=== PATIENT | male | born 1980 | race Caucasian/White ===

== ENCOUNTER → 2020-09-08 08:04 | Outpatient (CLI) | payer OTHER, SELFPAY ==
[2020-09-08 10:22] LABS: Hematocrit 43.7 % (40-54); Hemoglobin 14.8 g/dL (13.0-16.5); Mean Corp Hgb Conc 33.9 g/dL (32-36); Mean Corpuscular Hgb 30.8 pg (27.0-32.0); Platelet Count 238 K/mm3 (150-450); RBC Distribution Width CV 11.7 % (11.6-14.6); White Blood Count 4.7 K/mm3 (4.4-11.0)
[2020-09-08 10:45] LABS: Anion Gap 5 (5-15); BUN 14 mg/dL (7-18); BUN/Creat Ratio 15.2 RATIO (10-20); Calcium,Total 9.1 mg/dL (8.5-10.1); Chloride 106 mmol/L (98-107); Cholesterol 176 mg/dL (200); Creatinine, Serum 0.92 mg/dL (0.70-1.30); EST Glomerular Filtration Rate 96 mL/min (>60); Est Glom Filt Rate - Afr Amer 116 mL/min (>60); Glucose 88 mg/dL (74-106); High Density Lipoprotein 53 mg/dL; Potassium 3.9 mmol/L (3.5-5.1); Sodium Level 139 mmol/L (136-145); Triglycerides 59 mg/dL; Very Low Density Lipoprotein 12 mg/dL (5-40)
== END ==
PROVIDERS: PCP Family Medicine; Referring Provider Family Medicine; Visit Provider Family Medicine
DX: Z00.00 Encounter for general adult medical examination without abnormal findings (principal); Z13.1 Encounter for screening for diabetes mellitus; Z13.220 Encounter for screening for lipoid disorders
CPT/HCPCS: 36415; 80048; 80061; 85027

== ENCOUNTER → 2020-09-16 11:57 | Outpatient (CLI) | payer OTHER, SELFPAY ==
[2016-09-01 09:52] VITALS: BMI 31.6
--- NOTE | 2020-09-16 12:04 | RAD_ITS ---
STUDY: X-RAY - ABDOMEN/PELVIS REASON FOR EXAM: Male, 40 years old. ABDOMEN PAIN ON THE LEFT FOR ABOUT 2 WEEKS, NOW IT IS STARTING TO RADIATE POSTERIORLY. NO N,V,D OR C PER PATIENT. HX OF APPENDECTOMY ABOUT 4 YRS AGO. TECHNIQUE: 4 AP views COMPARISON: None. FINDINGS: Normal visualized lung bases. There is an unremarkable bowel gas pattern. There is no demonstrated free abdominal air. The visualized liver, spleen and kidneys are grossly normal in size and morphology. Normal soft tissue structures. Normal visualized osseous structures. RAD/Abd Inc Decub and/or Erect IMPRESSION: Normal x-ray examination of the abdomen and pelvis. Electronically Signed: Deejay Nugent MD at 16:48 EST , Service support ,
== END ==
PROVIDERS: PCP Family Medicine; Referring Provider Family Medicine; Visit Provider Family Medicine
DX: R10.9 Unspecified abdominal pain (principal)
CPT/HCPCS: 74019

== ENCOUNTER → 2020-10-20 06:58 | Outpatient (CLI) | payer OTHER, SELFPAY ==
--- NOTE | 2020-10-20 07:03 | CT_ITS ---
STUDY: CT ABDOMEN AND PELVIS WITH CONTRAST REASON FOR EXAM: Male, 40 years old. Abdomen pain AND BILATERAL FLANK PAIN X 2 MONTHS. PRIOR APPENDECTOMY RADIATION DOSAGE (If Supplied By Facility): CTDIvol = ( 14.80 ) mGy, DLP = ( 866.34 ) mGycm TECHNIQUE: Transaxial images were obtained from the dome of the diaphragm to the symphysis pubis with oral contrast. Oral and amp; IV Readi-CAT and amp; 100mL Isovue-300 was administered. Sagittal and coronal images were reconstructed. Individualized dose optimization techniques were used for this CT. COMPARISON: Comparison is made with prior study dated 08/31/2016. FINDINGS: Calcified right hilar lymph nodes. The visualized portions of the heart are within normal limits. There is decreased attenuation of the liver consistent with steatosis. Normal gallbladder and extrahepatic biliary system. Normal spleen. Normal pancreas. Normal bilateral adrenal glands. There is a 1.6 cm cyst in the anterior lateral aspect of the right kidney. Normal left kidney. There is a small hiatal hernia. Normal small intestine. There are scattered colonic diverticula consistent with diverticulosis. Mild degree of the mural thickening of the sigmoid colon. Early diverticulitis should be ruled out. There are surgical clips in the region of the appendix consistent with a prior appendectomy. Normal abdominal aorta. Normal inferior vena cava. There is borderline retroperitoneal lymphadenopathy with enlarged nodes no greater than 10mm in the short axis diameter. Normal urinary bladder. There is a small umbilical hernia containing fat. Minimal anterior listhesis of L5 on S1 with spondylolysis of the pars interarticularis of the L5 vertebrae. CT/Abdomen/Pelvis WITH Contrast IMPRESSION: Status post appendectomy. Scattered sigmoid diverticula. Minimal thickening of the wall of the sigmoid colon. Mild sigmoid diverticulitis should be ruled out. Electronically Signed: Ion Mueller, at 8:42 EST , Service support ,
== END ==
PROVIDERS: PCP Family Medicine; Referring Provider Family Medicine; Visit Provider Family Medicine
DX: R10.9 Unspecified abdominal pain (principal)
CPT/HCPCS: 74177; Q9967

== ENCOUNTER 2021-04-04 21:12 | Emergency (ER) | payer OTHER, SELFPAY ==
[2021-04-04 21:13] VITALS: BP 114/73; PULSE 89; RESP 15; TEMP 37.2; O2SAT 96; BMI 26.6
--- NOTE | 2021-04-04 21:30 | EDS_ITS ---
HPI History of Present Illness Chief Complaint: Abd Pain Informant: patient Narrative Narrative: 40-year-old male states he has been experiencing some left flank pain over the past several months. On Sunday he began to have left lower quadrant pain. Then this evening he notes that he developed a fever of up to 103. He notes generalized myalgias and headache. He had a Covid test that was negative. Because of the abdominal pain he went to urgent care. Dip UA they are negative. Concern was for recurrent diverticulitis. Therefore is referred to the emergency department. He has had prior appendectomy. PFSH PFSH Medical History Diverticulitis Non-smoker Home Medications ciprofloxacin HCl 500 mg PO BID #14 tablet 04/05/21 [Rx Last Taken Unknown] metronidazole 500 mg PO Q8H #21 tab 04/05/21 [Rx Last Taken Unknown] Allergy/AdvReac Type Severity Reaction Status Date / Time No Known Allergies Allergy Verified 04/04/21 21:15 Surgical History (Updated 04/04/21 @ 21:[address] Chip Cruz DO) History of appendectomy Social History (Updated 04/04/21 @ 21:[address] Chip Cruz DO) Smoking Status: Never smoker substance use type: does not use ROS ROS ED Constitutional Constitutional ED: Reports chills and fever(s); Denies weight loss Eyes Eyes: Denies change in vision or diplopia ENT ENT ED: Denies ear pain, rhinorrhea or sore throat Cardiovascular Cardiovascular: Denies chest pain, orthopnea, palpitations or racing heartbeat Respiratory/Chest Respiratory/Chest: Denies cough, dyspnea or orthopnea Gastrointestinal Gastrointestinal: Reports abdominal pain and other Details: Anorexia ; Denies diarrhea, nausea or vomiting Genitourinary Genitourinary ED: Denies dysuria, hematuria or urinary frequency Musculoskeletal Musculoskeletal: Denies arthralgias or myalgias Integumentary Denies abscess or rash Neurologic Neurologic: Reports headache(s); Denies weakness Psychiatric Psychiatric: Denies anxiety, depression, suicidal ideation or suicidal thoughts Endocrine Endocrinology: Denies polydipsia, polyphagia or polyuria Allergic/Immunologic Allergic/Immunologic ED: Denies mouth swelling, tongue swelling or urticaria EXAM Physical Exam Const Vital Signs: 04/04/21 21:13 04/04/21 22:19 Temperature 99 F 98.1 F Temperature Source Temporal Temporal Pulse Rate 89 71 Respiratory Rate 15 16 Blood Pressure 114/73 120/73 Blood Pressure Mean 86 88 Pulse Ox 96 95 Oxygen Delivery Method Room Air Room Air Positive well nourished and well developed General Appearance ED: well developed HEENT Reports normocephalic, head/scalp atraumatic and moist mucous membranes Eyes PERRL and EOMs intact bilaterally Neck no lymphadenopathy, supple and no JVD Resp normal respiratory effort and clear to auscultation bilaterally Cardio regular rate and no murmurs Rate: tachycardic GI non-tender Palpation: soft, tender LLQ and suprapubic and guarding Back/Spine no CVA tenderness and normal ROM Extremity normal to inspection General Extremety ED: Negative for edema General Extremity: Negative for edema Neuro oriented x3 and CN's II-XII intact bilaterally Sensorium / Orientation: alert Motor Exam: strength 5/5 throughout Psych mental status grossly normal Mood & Affect: Negative for depressed or tearful Skin no rashes or lesions noted and no wounds MDM MDM MDM Narrative Medical decision making narrative: Patient's WBC is 5. CMP is normal. Urinalysis negative. CT of the abdomen pelvis was obtained. This was read by radiology reviewed by myself. Radiology reads it is no acute process. Upon my review and compared it to prior and comparing it with his physical exam I think that there is some mild inflammatory changes around the sigmoid colon. I will place him on Cipro and Flagyl. However I do not feel that the findings should cause him 103 fever. He did have a Covid PCR test tonight through [facility] that was negative. He was advised that they could be a false negative early on in the course and should he develop any other symptoms or continued fever he should follow-up. Lab Data Labs: Laboratory Results - last 24 hr 04/04/21 04/04/21 04/04/21 21:45 21:45 22:30 WBC 5.0 RBC 4.77 Hgb 14.6 Hct 42.1 MCV 88.3 MCH 30.6 MCHC 34.7 RDW Std Deviation 37.5 RDW Coeff of [place] 11.7 Plt Count 179 MPV 9.9 Immature Gran % (Auto) 0.400 Neut % (Auto) 81.9 H Lymph % (Auto) 5.4 L [place] % (Auto) 11.3 H Eos % (Auto) 0.6 Baso % (Auto) 0.4 Absolute Neuts (auto) 4.1 Absolute Lymphs (auto) 0.27 L Nucleated RBC % 0 Differential Comment SCANNED Sodium 137 Potassium 3.5 Chloride 104 Carbon Dioxide 25.0 Anion Gap 8 BUN 15 Creatinine 1.04 Estim Creat Clear Calc 92.53 Est GFR (MDRD) Af Amer 100 Est GFR (MDRD) Non-Af 83 BUN/Creatinine Ratio 14.4 Glucose 125 H Calcium 8.8 Total Bilirubin 0.70 AST 26 ALT 33 Alkaline Phosphatase 77 Total Protein 8.1 Albumin 4.0 Globulin 4.1 Albumin/Globulin Ratio 1.0 Lipase 58 L Urine Color Yellow Urine Clarity Sl. Cloudy Urine pH 6.0 Ur Specific [place] 1.015 Urine Protein 30 H Urine Glucose (UA) Normal Urine Ketones 50 H Urine Occult Blood 10 H Urine Nitrite Negative Urine Bilirubin Negative Urine Urobilinogen Normal Ur Leukocyte Esterase 25 H Urine RBC 0-5 SEEN Urine WBC 0-5 SEEN Ur Squamous Epith Cells 0-5 SEEN Amorphous Sediment 1+ URATE Urine Bacteria 0 SEEN Urine Mucus 3+ Discharge Plan Triage Chief Complaint: Abd Pain ED Provider: Chip Cruz Dx/Rx/DC Orders Clinical Impression: Acute febrile illness, Diverticulitis, Abdominal pain, acute Instructions: ED Diverticulitis Prescriptions: New metronidazole [metronidazole] 500 MG tablet 500 mg PO Q8H Qty: 21 RF: 0 ciprofloxacin HCl [ciprofloxacin HCl] 500 MG tablet 500 mg PO BID Qty: 14 RF: 0 Primary Care Provider: Ronnie Singh Referrals: Ronnie Singh MD [Primary Care Provider] - 3-5 Days if not improving Disposition Disposition: Home, self care
--- NOTE | 2021-04-04 21:30 | CT_ITS ---
STUDY: CT ABDOMEN AND PELVIS WITH CONTRAST REASON FOR EXAM: Male, 40 years old. abdominal pain and fever -- IV PO Contrast RADIATION DOSAGE (If Supplied By Facility): CTDIvol = ( 20.49 ) mGy, DLP = ( 1094.31 ) mGycm TECHNIQUE: Transaxial images were obtained from the dome of the diaphragm to the symphysis pubis with oral contrast. Oral and amp; IV Gastrografin and amp; 100mL Isovue-300 was administered. Sagittal and coronal images were reconstructed. Individualized dose optimization techniques were used for this CT. COMPARISON: None. FINDINGS: The visualized lung bases are unremarkable. The visualized portions of the heart are within normal limits. Normal liver. Normal gallbladder and extrahepatic biliary system. Normal spleen. Normal pancreas. Normal bilateral adrenal glands. Normal right kidney. Normal left kidney. Nonenhancing right renal cyst, small. Normal visualized stomach. Normal small intestine. Normal colon. There is non-visualization of the appendix. Normal abdominal aorta. Normal inferior vena cava. Normal retroperitoneum. Normal urinary bladder. Normal visualized prostate gland. Normal abdominal wall. Normal osseous structures. CT/Abdomen/Pelvis WITH Contrast IMPRESSION: No acute findings. Nonenhancing small right renal cyst. No evidence of bowel obstruction or acute appendicitis. Electronically Signed: Christiano Mathew DO at 0:12 EDT Tel , Service support ,
[2021-04-04 21:55] LABS: Absolute Lymphocyte Count 0.27 X10^3/uL (0.83-4.51); Absolute Neutrophil Count 4.1 X10^3/uL (2.0-7.7); Basophil# 0.02 X10^3/uL; Basophil% 0.4 % (0-1); Eosinophil# 0.03 X10^3/uL; Eosinophils% 0.6 % (0-5); Hematocrit 42.1 % (40-54); Hemoglobin 14.6 g/dL (13.0-16.5); Lymphocyte # 0.27 X10^3/ul (0.83-4.51); Lymphocyte % 5.4 % (19-41); Mean Corp Hgb Conc 34.7 g/dL (32-36); Mean Corpuscular Hgb 30.6 pg (27.0-32.0); Mean Corpuscular Volume 88.3 fL (80-94); Mean Platelet Vol. 9.9 fl (6.2-12.0); Monocyte# 0.57 X10^3/uL; Monocyte% 11.3 % (0-10); NRBC Flagged by Analyzer 0 % (0-5); Neutrophil # 4.13 X10^3/uL (2.7-7.7); Neutrophil % 81.9 % (47-70); POSITIVE DIFFERENTIAL YES; Platelet Count 179 K/mm3 (150-450); RBC Distribution Width CV 11.7 % (11.6-14.6); RBC Distribution Width SD 37.5 fl (35.1-43.9); Red Blood Count 4.77 M/mm3 (4.6-6.2)
[2021-04-04] MEDS: 0.9% Normal Saline 1,000 ML 1000 ML IV (21:55)
[2021-04-04 21:56] LABS: Differential Indicated SCAN CRITERIA MET
[2021-04-04 22:19] VITALS: BP 120/73; PULSE 71; RESP 16; TEMP 36.7; O2SAT 95
[2021-04-04 22:22] LABS: AST(SGOT) 26 U/L (15-37); Alanine Aminotransfer ALT/SGPT 33 U/L (16-61); Alkaline Phosphatase 77 U/L (45-117); Anion Gap 8 (5-15); BUN 15 mg/dL (7-18); BUN/Creat Ratio 14.4 RATIO (10-20); Calcium,Total 8.8 mg/dL (8.5-10.1); Chloride 104 mmol/L (98-107); Creatinine, Serum 1.04 mg/dL (0.70-1.30); Differential Comment SCANNED; EST Glomerular Filtration Rate 83 mL/min (>60); Est Glom Filt Rate - Afr Amer 100 mL/min (>60); Estimated Creatinine Clearance 92.53 ml/min; Globulin 4.1 g/dL (2.2-4.2); Glucose 125 mg/dL (74-106); Lipase 58 U/L (73-393); Potassium 3.5 mmol/L (3.5-5.1); Protein, Total 8.1 g/dL (6.4-8.2); Sodium Level 137 mmol/L (136-145)
[2021-04-04 22:35] LABS: Bacteria 0 SEEN /hpf (None Seen)
[2021-04-04 22:37] LABS: Color, Urine Yellow (Yellow); Glucose, Dipstick Normal (Normal); Ketone-Dipstick 50 mg/dl (Negative); Leukocyte Esterase-Dipstick 25 /ul (Negative); Nitrite-Dipstick Negative (Negative); Occult Blood-Urine 10 /ul (Negative); Protein-Dipstick 30 mg/dl (Negative); Specific Gravity, Urine 1.015 (1.002-1.030); Urine Bilirubin Dipstick Negative (Negative); Urine Clarity Sl. Cloudy (Clear); Urine Urobilinogen Normal (Normal)
[2021-04-04 22:44] LABS: Amorphous Sediment 1+ URATE; Mucous, Urine 3+ /hpf (<or=2+); Red Blood Cells-Urine 0-5 SEEN /hpf (0-5); Squamous Epithelial Cells - UA 0-5 SEEN /hpf (0-5); White Blood Cells 0-5 SEEN /hpf (0-5)
[2021-04-05] MEDS: Ibuprofen 400 MG Tablet 800 MG PO (00:30)
[2021-04-05] MEDS: Ciprofloxacin 500 MG Tablet PO (00:30)
[2021-04-05] MEDS: metroNIDAZOLE 500 MG Tablet PO (00:30)
[2021-04-05 00:35] VITALS: TEMP 37.5
== END 2021-04-05 00:35 | disposition home or self-care (01) ==
PROVIDERS: Emergency Provider Emergency Medicine; PCP Family Medicine
DX: R50.9 Fever, unspecified (principal); K57.92 Diverticulitis of intestine, part unspecified, without perforation or abscess without bleeding; R10.9 Unspecified abdominal pain
CPT/HCPCS: 74177; 80053; 81001; 83690; 85025; 96360; 96361; 99284; J7030; Q9967; A4216

== ENCOUNTER 2021-12-13 17:04 | Outpatient (CLI) | payer OTHER, SELFPAY ==
--- NOTE | 2021-12-13 17:07 | RAD_ITS ---
STUDY: X-RAY - SACRUM/COCCYX REASON FOR EXAM: Male, 41 years old. COCCYALGIA TECHNIQUE: 3 view(s) of the sacrum and coccyx were obtained. COMPARISON: CT abdomen and pelvis 04/04/2021 FINDINGS: Normal bilateral sacroiliac joints. Normal visualized sacral ala and fused sacral bodies. Normal sacrococcygeal junction with a normal angulation. Normal coccygeal segments. Mild stable anterolisthesis L5 on S1 grade 1, mild disc space narrowing. The presacral soft tissue structures are unremarkable. RAD/Sacrum-Coccyx min 2 Views IMPRESSION: Grade 1 anterolisthesis L5 on S1 is stable. No abnormality of sacrum or coccyx detected. Electronically Signed: Rossi Law MD at 3:15 EST Reading Location ID and State: , Service support ,
== END 2021-12-13 23:59 | disposition home or self-care (01) ==
LOC: MTRAD 17:06
PROVIDERS: PCP Family Medicine; Referring Provider Family Medicine; Visit Provider Family Medicine
DX: M43.16 Spondylolisthesis, lumbar region (principal)
CPT/HCPCS: 72220

== ENCOUNTER → 2024-01-11 | Outpatient (CLI) | payer OTHER, SELFPAY ==
--- OUTSIDE RECORDS SUMMARY | 2024-01-11 09:26 | XMS RPT_ITS | CCD ---
Author Name Unknown Address [address] [place] [address] Organization [facility] Care Team Providers Care Network Support Administrator Name Role Phone No, Physician Unavailable Unavailable NO, PHYSICIAN Unavailable Unavailable RUPESH MAHARAJ Unavailable Unavailabl e Problems Active Problems Problem Classification Problem Date Documented Da te Episodic/Chronic Acute and chronic tonsillitis (2 sources) Chronic disease of tonsils and adenoids, unspecified; Translations: [Chronic disease of tonsils and adenoids, unspecified] Onset: 09-22-2017 Chronic Past or Other Problems Problem Classification Problem Date Documented Da te Episodic/Chronic Unclassified (1 source) Lesion of tonsil Results Test Name Value Interpretation Reference Range Facil ity Vital Signs Date Time Vital Sign Value Performing Clinician William sena 09-22-2017 16:43-0500 Body Temperature 98.1 [degF] [facility] Work Phone: 09-22-2017 16:43-0500 BP Diastolic 94 mm[Hg] [facility] Work Phone: 09-22-2017 16:43-0500 BP Systolic 136 mm[Hg] [facility] Work Phone: 09-22-2017 16:43-0500 Pulse (Heart Rate) 74 /min [facility] Work Phone: 09-22-2017 16:43-0500 Pulse Oximetry 97 % [facility] Work Phone: 09-22-2017 16:43-0500 Respiratory Rate 15 /min [facility] Work Phone: 09-22-2017 16:43-0500 Weight 91.17 kg Rupesh Maharaj [facility] Work Phone: Encounters Encounter Date Encounter Type Care Provider Facility Start: 09-22-2017 End: 09-22-2017 Ambulatory PHYSICIAN [facility] Start: 09-22-2017 Office outpatient ne w 30 minutes Rupesh Maharaj Work Phone: [facility] Plan of Treatment Date Care Activity Detail Author Start: 06-29-2017 Influenza vaccination SEQUENTI AL INFLUENZA VACCINE (#1) [facility] Work Phone: Start: 1980 Tetanus vaccination TETANUS EVERY 10 YR [facility] Work Phone: End: 09-22-2018 Bacteria identified in Throat by Aerobe culture Throat Aerobic Culture Routine Lesion of tonsil 1 Occurrences starting 09/22/2017 until 09/22/2018 [facility] Work Phone: Bacteria identified in Throat by Aerobe culture Throat Aerobic Culture Routine Lesion of tonsil 09/22/2017 5:18 PM EST [facility] Work Phone: Payers Date Payer Category Payer Unknown [id number] 2. [id number] Social History Date Type Detail Facility Start: 09-22-2017 Tobacco smoking stat [facility] Never smoker [facility] Work Phone: Sex Assigned At Not on file [facility] Work Phone: Progress note 04-04-2021 Note Date & Type Note Facility 04-04-2021 Note HNO ID: [id number] Author: Cricket Caputo MD Service: ? Author Type: Physician Type: Progress Notes Filed: 04/04/2021 10:27 PM Note Text: Patient presents with: Fever: with bodyaches AND LEFT flank pain x 2 days HPI: He has felt a little achy since Sunday after hard exercise. Symptoms were bad today. Negative rapid COVID test earlier today. Dysuria: No Frequency: Yes- nocturia a couple times this week with small production Hematuria: No Nausea: No. He had lunch but is not currently hungry. No diarrhea, no hematuria, less stool than normal Fever or chills: Yes Back pain: right lower back near the spine since last year - CT showed diverticulitis, improved with antibiotic. He had severe pain earlier, it is still present but 6/10. The pain is similar to his prior diverticulitis. Abdominal pain: left and suprapubic Prior UTI: No Personal history of kidney stones: No Taking ibuprofen Macro diet for a couple weeks. Denies earache, sore throat, cough, or shortness of breath. PAST MEDICAL HISTORY Diagnosis Date - Diverticulitis PAST SURGICAL HISTORY Procedure Laterality Date - APPENDECTOMY 2016 MEDICATIONS: No current outpatient medications on file. No current facility-administered medications for this visit. ALLERGIES: ALLERGIES No Known Allergies VITALS: BP 108/62 Pulse 89 Temp (!) 39.2 ?C (102.6 ?F) (Left Tympanic) Resp 16 Wt 84.4 kg (186 lb) SpO2 94% PHYSICAL EXAM: GEN: NAD HEENT: EOMI, conjunctiva clear, moist mucous membranes, no pharyngeal erythema, remote left TM scar, no middle ear effusion or TM erythema. HEART: regular rate and rhythm, no murmurs LUNGS: clear to auscultation, no wheezes or crackles, no increased WOB ABDOMEN: Soft, nondistended, no masses, left lateral tenderness BACK: left lumbar tenderness ASSESSMENT/PLAN: 1. Left flank pain - ICD9: 789.09, ICD10: R10.9 (primary diagnosis) 2. Fever, unspecified fever cause - ICD9: 780.60, ICD10: R50.9 3. History of diverticulitis - ICD9: V12.70, ICD10: Z87.19 - UA DIP, URINE (POC) - positive for ketones, protein, bilirubin, and trace blood. We discussed treatment options for treatment: ER evaluation vs trial of outpatient antibiotic for presumed diverticulitis. With the presence of high fever further emergency evaluation to assess for perforation or pyelonephritis is best. He will go to [facility] ER. ERPassport report sent. Cricket Caputo MD [facility] Instructions * Patient Instructions - Rupesh Maharaj, - 09/22/2017 5:12 PM EST Follow up with PCP in 5-7 days or sooner if needed. Can return to Urgent Care for recheck exam if your symptoms change in nature or if you do not improve within 3-5 days time. Take all medications asprescribed. If you develop new or persistent fevers with temp >100F, chest pain, shortness of breath, abdominal pain or vomiting, go to the nearest ER for evaluation. in this encounter Assessments Diagnosis Lesion of tonsil - Primary Summary Purpose Family History No Family History Records FoundNo Family History Records Found Advance Directives No Advanced Directives Records FoundNo Advanced Directives Records Found Additional Source Comments (unrecognized sect ion and content) No Status Records FoundNo Status Records Found INFORMATION SOURCE (unrecogn ized section and content) DATE CREATED AUTHOR AUTHOR'S ORGANIZ ATION 12/16/2021 [facility] FOR RECORDS PERTAINING TO PATIENTS WHO ARE OR HAVE BEEN ENROLLED IN A CHEMICAL DEPENDENCY/SUBSTANCEABUSE PROGRAM, SOME INFORMATION MAY BE OMITTED. This clinical summary was aggregated from multiple sources. Caution should be exercised in using it in the provision of clinical care. This summary normalizes information from multiple sources, and as a consequence, information in this document may materially change the coding, format and clinical context of patient data. In addition, data may be omitted in some cases. CLINICAL DECISIONS SHOULD BE BASED ON THE PRIMARY CLINICAL RECORDS. [employer] provides no warranty or guarantee of the accuracy or completeness of information in this document.
[2024-01-11 11:24] LABS: Anion Gap 5 (5-15); BUN 18 mg/dL (7-18); BUN/Creat Ratio 18.4 RATIO (10-20); Calcium,Total 9.4 mg/dL (8.5-10.1); Chloride 107 mmol/L (98-107); Cholesterol 181 mg/dL (200); Creatinine, Serum 0.98 mg/dL (0.70-1.30); EST Glomerular Filtration Rate 88 mL/min (>60); Est Glom Filt Rate - Afr Amer 107 mL/min (>60); Glucose 85 mg/dL (74-106); High Density Lipoprotein 59 mg/dL; Potassium 4.4 mmol/L (3.5-5.1); Sodium Level 140 mmol/L (136-145); Triglycerides 36 mg/dL; Very Low Density Lipoprotein 7 mg/dL (5-40)
== END | disposition home or self-care (01) ==
LOC: MTLAB 09:02
PROVIDERS: PCP Family Medicine; Referring Provider Family Medicine; Visit Provider Family Medicine
DX: Z13.1 Encounter for screening for diabetes mellitus (principal); Z13.220 Encounter for screening for lipoid disorders
CPT/HCPCS: 36415; 80048; 80061